=== PATIENT | male | born 1960 | race American Indian/Alaskan Native ===

== ENCOUNTER 2019-02-28 09:27 | Day surgery (SDC) | payer OTHER ==
[2019-02-28] MEDS ORDERED: LIDOCAINE MPF (2%) 20 MG/1 ML VIAL 5 ML ONE (10:00)
[2019-02-28] MEDS ORDERED: SODIUM CHLORIDE 0.9% 1000 ML 1,000 ML ONE (10:18)
--- NOTE | 2019-02-28 10:37 | Anesthesia Consultation ---
Anesthesia Consult and Med Hx Date of service: 02/28/19 - Airway Anesthetic Teeth Evaluation: Good ROM Head & Neck: Adequate Mental/Hyoid Distance: Adequate Mallampati Class: Class III Intubation Access Assessment: Possibly Difficult - Pre-Operative Health Status ASA Pre-Surgery Classification: ASA3 Proposed Anesthetic Plan: MAC - Cardiovascular System Hx Hypertension: Yes - Central Nervous System Hx Back Pain: Yes (gout) - Endocrine Hx Non-Insulin Dependent Diabetes: Yes Hx Hypothyroidism: Yes - Other Systems Hx Obesity: Yes - Additional Comments Anesthesia Medical History Comments: HIV
--- NOTE | 2019-02-28 10:39 | Anesthesia Day of Surgery ---
Anesthesia Day of Surgery - Day of Surgery Patient Examined: Yes Patient H&P Reviewed: Yes Patient is NPO: Yes
[2019-02-28] MEDS ORDERED: SODIUM CHLORIDE 0.9% 1000 ML 1,000 ML IV SCH (11:00)
[2019-02-28] MEDS ORDERED: PROPOFOL 200 MG/20 ML VIAL IV ONE ×2 (11:25)
--- NOTE | 2019-02-28 12:18 | Operative Report ---
Operative Report Operative Report: Procedure: Colonoscopy with multiple cold snare polypectomies, multiple submucosal injections with elevation of colon polyps, cold biopsy polypectomy, polyp ablation. Attending physician: Paul Anguiano M.D. Fiberglass Machine Operator: Paul Anguiano M.D. Indication: Patient is a 69-year-old male who presents for screening colonoscopy. Patient has a past history of colon polyps. This colonoscopy serves to evaluate patient so that treatment may be directed based on the findings. Consent: Informed consent was obtained after advising the patient and family regarding nature of this procedure, its indications, potential benefits as well as possible complications including but not limited to bleeding perforation and adverse reaction to medication, infection as well as other cardiopulmonary complications. An informed written and verbal consent was then obtained after due opportunity was provided for questions and answers. Monitoring: Patient was monitored continuously with pulse oximetry and electrocardiographic recordings as well as blood pressure recordings. Vital signs remained stable throughout this procedure with no untoward events. Preoperative assessment: Patient was assessed immediately prior to this procedure for capacity to tolerate monitored anesthesia care and moderate sedation as well as general anesthesia. Patient's ASA classification is 3, Mallampati class is 2, Hyomental distance is 3. Instrument: Olympus video colonoscope.: CF-HQ 190L Medications: Propofol given intravenously in divided doses. For details please refer to anesthesia records. Description of procedure: Patient was placed in the left lateral decubitus position after achieving sedation, a digital rectal examination was performed following which the colonoscope was introduced into the anal verge and advanced to the cecum which was identified by the cecal valve, the appendiceal orifice, as well as by the cecal strap and direct transillumination. The colonoscope was subsequently withdrawn with careful inspection of all mucosal surfaces. Patient tolerated this procedure well and was subsequently taken to the recovery room. The following findings were noted. Findings: The [place] prep scale score was 6 and vision was deemed to have adequate colonoscopic preparation. The withdrawal time from the cecum was greater than 9 minutes . The quality of the colonoscopy was deemed good. Patient had a broad-based flat polyp seen in the ileocecal valve measuring about 10 mm. This was elevated with submucosal injection of saline and removed by cold snare electrocautery and retrieved. A Hemoclip was applied at the polypectomy site. In the transverse colon, patient had a diminutive 5 mm sessile polyp which was removed by cold biopsy polypectomy. The polyp base was ablated. Patient had diverticula in the sigmoid and descending colon. In the descending colon, patient had an 8 mm flat polyp which was elevated with submucosal injection of saline and removed by cold snare polypectomy and retrieved. Hemoclip was applied at the polypectomy site. The rest of the colon was normal. Patient was noted to have internal hemorrhoids seen on the retroflexed view at the anal verge. Impression: Ileocecal valve polyp and descending colon polyp status cold snare polypectomy and submucosal injection and Hemoclip application. Transverse colon polyp status post cold biopsy polypectomy and polyp base ablation. Diverticular disease of the sigmoid and descending colon. Internal hemorrhoids. Plan: Follow pathology report. High-fiber diet. Consider repeat colonoscopy in 3 years.
[2019-02-28 12:46] VITALS: BP 125/77
--- NOTE | 2019-02-28 13:21 | Discharge Summary ---
Short Stay Discharge Plan Activity: advance as tolerated Weight Bearing Status: Weight Bear as Tolerated Diet: regular Additional Instructions: Post Sedation D/C Instructions When you return home you may resume your regular diet unless otherwise directed. -Go directly home from the hospital and rest quietly. You may resume normal activities tomorrow. -Do NOT drive, return to work, operate any machinery or make any important personal or business decisions today. -Do NOT drink any alcohol or take nerve or sleeping drugs. They add to the effects of the medicine still present in your body. No Aspirin or Aspirin products for 4 days. Follow up with: [facility] [Primary Care Provider] - 7 Days
--- NOTE | 2019-02-28 20:26 | Post Anesthesia Evaluation ---
- Post Anesthesia Evaluation Patient Participated: Yes Airway Patent: Yes Stable Respiratory Function: Yes Nausea/Vomiting: No Temp > 96.8F: Yes Pain Manageable: Yes Adequeate Hydration: Yes Anesthesia Complications: No Block Receding Appropriately: Not Applicable Patient on Ventilator: No
== END 2019-02-28 09:28 | disposition home or self-care (01) ==
LOC: GIO 09:27
PROVIDERS: ATTEND Internal Medicine Gastroenterology
DX: Z12.11 Encounter for screening for malignant neoplasm of colon (principal); D12.4 Benign neoplasm of descending colon; D12.0 Benign neoplasm of cecum; K57.30 Diverticulosis of large intestine without perforation or abscess without bleeding; K64.8 Other hemorrhoids; I10 Essential (primary) hypertension; E66.9 Obesity, unspecified; E03.9 Hypothyroidism, unspecified; E11.9 Type 2 diabetes mellitus without complications; Z79.899 Other long term (current) drug therapy; Z79.84 Long term (current) use of oral hypoglycemic drugs; Z68.32 Body mass index [BMI] 32.0-32.9, adult
CPT/HCPCS: 45380; 45381; 45385; 82962; 88305; J2704; J7030